=== PATIENT | female | born 1950 | race Caucasian/White ===

== ENCOUNTER 2019-10-16 11:05 | Emergency (ER) | payer OTHER ==
[~2019-10-16] VITALS: Ht 157.5 cm; Wt 62.1 kg
[2019-10-16] MEDS ORDERED: [UNRECOGNIZED DRUG - OTHER] (12:45)
[2019-10-16] MEDS ORDERED: NORVASC5 MG (12:45)
[2019-10-16] MEDS ORDERED: PEPCID AC20 MG PO (16:09)
== END 2019-10-16 17:33 | disposition home or self-care (01) ==
LOC: ER 11:05
DX: R19.7 Diarrhea, unspecified (principal)